=== PATIENT | male | born 1960 | race Caucasian/White ===

== ENCOUNTER → 2023-03-27 | Outpatient (CLI) | payer OTHER, SELFPAY ==
--- NOTE | 2023-03-27 13:19 | STRESSREP ---
Stress Test Report Pharmacologic myocardial perfusion stress test. 62-year-old man with a history of chest pain and atrial fibrillation Resting EKG demonstrates sinus rhythm with a rate of 65 bpm. Resting blood pressure is 128/84 mmHg. 0.4 mg of regadenoson was infused per usual protocol followed by rapid intravenous saline flush injection. Continuous EKG monitoring was performed. The maximum heart rate was 86 bpm which was 54% of max impacted heart rate the maximum workload was 1 metabolic equivalent. At rest there were no ST or T wave changes noted to suggest ischemia and at peak infusion nonspecific ST changes were noted which did not meet the criteria for ischemia. No clinical angina is noted. The final blood pressure was 124/74 mmHg. Myocardial perfusion protocol. 14.8 mCi of technetium 99m sestamibi was injected at rest. 0.4 mg of regadenoson was infused per usual protocol. At peak infusion 44.5 mCi of technetium 99m sestamibi was injected stress images were obtained stress and rest images were reconstructed and compared in the short axis vertical long and horizontal long axis. Gated images were also obtained. Perfusion SPECT analysis: Review of the stress images demonstrate normal uptake of tracer noted in all areas of the myocardium. The resting images similar demonstrated normal uptake of tracer noted in all areas of the myocardium. No areas of reversibility are noted to suggest ischemia and no previous infarct is noted. Gated SPECT analysis: The gated ejection fraction is 61%. Conclusion: Normal pharmacologic myocardial perfusion stress test. Preserved ejection fraction.
== END | disposition home or self-care (01) ==
PROVIDERS: PCP Family Medicine; Referring Provider Nurse Practitioner Family; Visit Provider Nurse Practitioner Family
DX: R07.9 Chest pain, unspecified (principal); R00.2 Palpitations
CPT/HCPCS: 78452; 93017; A9500; A4216; J2785

== ENCOUNTER 2023-04-10 11:10 | Observation (INO) | payer OTHER, SELFPAY ==
[2023-04-10] VITALS (24 sets, daily range): BP systolic 107–141; BP diastolic 72–105; PULSE 45–133; RESP 12–28; TEMP 36.2–36.9; O2SAT 95–100; BMI 31.5; BMI 31.2
--- NOTE | 2023-04-10 11:26 | RAD_ITS ---
STUDY: X-RAY CHEST REASON FOR EXAM: Male, 62 years old. Chest pain TECHNIQUE: 2 AP portable view of the chest. COMPARISON: None. FINDINGS: The lungs are clear and expanded. There is no demonstrated pleural abnormality. Normal size heart. Normal mediastinum and meron. Normal visualized pulmonary arteries. Normal visualized aortic arch and descending thoracic aorta. Normal visualized thoracic spine. Normal visualized ribs, clavicles, and shoulders. There is no demonstrated abnormality of the visualized soft tissue structures of the upper abdomen. RAD/Chest 1 View (Portable) IMPRESSION: Normal x-ray examination of the chest. Electronically Signed: Allan Carrasquillo MD at 13:25 EDT ,
--- NOTE | 2023-04-10 11:27 | EKG12_ITS ---
Test Reason : PALPITATIONS Blood Pressure : / mmHG Vent. Rate : 144 BPM Atrial Rate : 000 BPM P-R Int : 000 ms QRS Dur : 082 ms QT Int : 278 ms P-R-T Axes : 000 011 056 degrees QTc Int : 430 ms Atrial fibrillation with rapid ventricular response Abnormal ECG Confirmed by NIEVES BRITO, COLBY ([id number]), business editor BAMBI MESA ([id number]) on 04/12/2023 8:49:59 AM Referred By: [facility] Confirmed By:COLBY PICKETT MD
[2023-04-10 11:56] LABS: Absolute Lymphocyte Count 1.69 X10^3/uL (0.83-4.51); Absolute Neutrophil Count 6.3 X10^3/uL (2.0-7.7); Basophil# 0.05 X10^3/uL; Basophil% 0.6 % (0-1); Eosinophil# 0.11 X10^3/uL; Eosinophils% 1.3 % (0-5); Hematocrit 46.7 % (40-54); Lymphocyte # 1.69 X10^3/ul (0.83-4.51); Lymphocyte % 19.4 % (19-41); Mean Corp Hgb Conc 34.3 g/dL (32-36); Mean Corpuscular Hgb 30.2 pg (27.0-32.0); Mean Corpuscular Volume 88.1 fL (80-94); Mean Platelet Vol. 11.2 fl (6.2-12.0); Monocyte# 0.54 X10^3/uL; Monocyte% 6.2 % (0-10); NRBC Flagged by Analyzer 0 % (0-5); Neutrophil # 6.29 X10^3/uL (2.7-7.7); Neutrophil % 72.2 % (47-70); Platelet Count 245 K/mm3 (150-450); RBC Distribution Width CV 12.5 % (11.6-14.6); RBC Distribution Width SD 40.5 fl (35.1-43.9); White Blood Count 8.7 K/mm3 (4.4-11.0)
[2023-04-10] MEDS: dilTIAZem 25 MG/5 ML Vial IV BOLUS (12:02)
[2023-04-10] MEDS: 0.9% Normal Saline 1,000 ML 1000 ML IV (12:02)
[2023-04-10 12:07] LABS: Prothrombin Time (Protime)PT. 12.8 SECONDS (11.7-14.9)
[2023-04-10 12:08] LABS: Partial Thromboplast Time 30.2 Seconds (24.1-36.2)
--- NOTE | 2023-04-10 12:11 | EX.ED.DYSGE1 ---
HPI History of Present Illness Chief Complaint: Palpitations Informant: patient Onset/Context/Timing Onset: Yesterday Context: Sudden Onset Timing: Continuous Quality: Racing, tightness Location: Chest Worsened by: Exertion Relieved by: Nothing Associated Symptoms Associated Symptoms: Nausea, vomiting, fatigue Narrative Narrative: Patient presents with palpitations that began yesterday evening. Patient states it began rather suddenly. Patient states he felt his heart racing. Patient states he feels tightness in his chest. Patient states his symptoms are worse with any exertion. Patient does admit to some nausea and vomiting with this. Patient also states he has been feeling fatigued since this has started. Patient denies any diaphoresis. Patient denies any fevers or chills. Prior similar symptoms: Yes PFSH PFSH Medical History no medical history no medical history Allergy/AdvReac Type Severity Reaction Status Date / Time No Known Allergies Allergy Verified 04/10/23 11:13 Surgical History History of herniorrhaphy Social History Smoking Status: Current some day smoker tobacco type: cigars ROS ROS ED Constitutional Constitutional ED: Denies chills or fever(s) Eyes Eyes: Denies blurry vision or change in vision ENT ENT ED: Denies rhinorrhea or sore throat Cardiovascular Cardiovascular: Reports chest pain and palpitations Respiratory/Chest Respiratory/Chest: Denies cough or dyspnea Gastrointestinal Gastrointestinal: Reports nausea and vomiting Genitourinary Genitourinary ED: Denies dysuria or hematuria Musculoskeletal Musculoskeletal: Denies back pain or neck pain Integumentary Denies abscess or rash Neurologic Neurologic: Denies headache(s) or weakness Allergic/Immunologic Allergic/Immunologic ED: Denies mouth swelling or urticaria EXAM Physical Exam Const Vital Signs: 04/10/23 11:11 04/10/23 11:10 04/10/23 11:28 Temperature 98 F Temperature Source Temporal Pulse Rate 45 L 133 H Respiratory Rate 16 18 Respiratory Effort Short of Breath Labored Blood Pressure 121/95 H 141/104 H Blood Pressure Mean 103 116 Pulse Ox 97 98 Oxygen Delivery Method Room Air Room Air 04/10/23 12:10 04/10/23 13:10 04/10/23 14:00 Temperature Temperature Source Pulse Rate 77 96 110 H Respiratory Rate 16 24 H 22 H Respiratory Effort Blood Pressure 112/87 H 115/86 H 129/105 H Blood Pressure Mean 95 95 113 Pulse Ox 96 98 97 Oxygen Delivery Method Room Air Room Air Room Air Positive well nourished and well developed General Appearance ED: well developed HEENT Reports moist mucous membranes Neck supple and no JVD Resp normal respiratory effort and clear to auscultation bilaterally Cardio Rate: tachycardic Rhythm: abnormal rhythm irregularly irregular GI normal to inspection, nondistended, normoactive bowel sounds and non-tender Palpation: soft Extremity normal to inspection General Extremety ED: Negative for edema or tenderness General Extremity: Negative for edema Neuro oriented x3, CN's II-XII intact bilaterally and no sensory deficits noted Sensorium / Orientation: alert Motor Exam: strength 5/5 throughout Psych mental status grossly normal Skin no rashes or lesions noted MDM MDM MDM Narrative Medical decision making narrative: Differential diagnosis includes cardiac dysrhythmia, cardiac ischemia, anemia, electrolyte abnormality, and viral illness. Chest x-ray will be obtained to assess for cardiomegaly and pneumonia. EKG will be obtained to assess for cardiac dysrhythmia and cardiac ischemia. CBC will be obtained to assess for anemia and leukocytosis. Basic metabolic profile will be obtained to assess for electrolyte abnormality and renal function. PT with INR and PTT will be obtained to assess for coagulopathy. High-sensitivity troponin will be obtained to assess for cardiac ischemia. Lab Data Attestation: I reviewed the patient's lab results. Lab results narrative: CBC was reviewed and was within normal limits. PT with INR and PTT were reviewed and were within normal limits. Basic metabolic profile was reviewed. Glucose was slightly elevated at 126. The remainder was essentially within normal limits. High-sensitivity troponin was reviewed and was normal at 5. 2-hour repeat high-sensitivity troponin was reviewed and was normal at 6. Labs: Laboratory Results - last 24 hr 04/10/23 04/10/23 04/10/23 11:40 11:40 11:40 WBC 8.7 RBC 5.30 Hgb 16.0 Hct 46.7 MCV 88.1 MCH 30.2 MCHC 34.3 RDW Std Deviation 40.5 RDW Coeff of Andrei 12.5 Plt Count 245 MPV 11.2 Immature Gran % (Auto) 0.300 Neut % (Auto) 72.2 H Lymph % (Auto) 19.4 [place] % (Auto) 6.2 Eos % (Auto) 1.3 Baso % (Auto) 0.6 Absolute Neuts (auto) 6.3 Absolute Lymphs (auto) 1.69 Nucleated RBC % 0 PT 12.8 INR 1.0 APTT 30.2 Sodium 140 Potassium 4.3 Chloride 108 H Carbon Dioxide 24.0 Anion Gap 8 BUN 13 Creatinine 0.93 Estim Creat Clear Calc 97.17 Est GFR (MDRD) Af Amer 105 Est GFR (MDRD) Non-Af 87 BUN/Creatinine Ratio 14.0 Glucose 126 H Calcium 9.2 Troponin I High Sens 5 04/10/23 13:40 WBC RBC Hgb Hct MCV MCH MCHC RDW Std Deviation RDW Coeff of Andrei Plt Count MPV Immature Gran % (Auto) Neut % (Auto) Lymph % (Auto) [place] % (Auto) Eos % (Auto) Baso % (Auto) Absolute Neuts (auto) Absolute Lymphs (auto) Nucleated RBC % PT INR APTT Sodium Potassium Chloride Carbon Dioxide Anion Gap BUN Creatinine Estim Creat Clear Calc Est GFR (MDRD) Af Amer Est GFR (MDRD) Non-Af BUN/Creatinine Ratio Glucose Calcium Troponin I High Sens 6 Radiography Chest X-Ray - ED: 1 View, Read by ED Physician, Read by Radiologist and No Acute Disease Diagnostic Testing: Clinical Impression(s) from Imaging Studies Chest X-Ray 04/10/23 11:26 IMPRESSION: Normal x-ray examination of the chest. Electronically Signed: Allan Carrasquillo MD at 13:25 EDT Reading Location ID and State: [facility] / [place] , Service support , Portable 1 view chest x-ray was obtained. On my independent interpretation, lung childs are clear. There is normal cardiac silhouette. Bony thorax is normal. There is no acute process noted. Radiologist also interpreted the x-ray and agrees. EKG Initial EKG: Attestation: I personally reviewed and interpreted this EKG as follows: Interpretation: No Acute Injury Pattern and Atrial Fibrillation (144) Comments: EKG was obtained. On my independent interpretation, it shows atrial fibrillation with a rate of 144. QRS interval was normal at 82 ms. QTc interval was normal at 430 ms. [place] was normal. There are no acute ST or T wave changes noted. Prior EKG tracings: available for review Prior: Changed (Compared to EKG dated 03/27/2023, the atrial fibrillation is new. There are no new ST or T wave changes noted.) Treatment and Re-Evaluation :: Patient was given a dose of IV Cardizem here. Patient's heart rate improved after this. Patient's heart rate started to increase again. Patient was started on a Cardizem drip. Case was discussed with the hospitalist. He will admit the patient to PCU. Patient understands and is agreeable with the plan. All questions were answered. Discharge Plan Triage Chief Complaint: Palpitations ED Provider: Fernando Ramos Dx/Rx/DC Orders Clinical Impression: Atrial fibrillation, new onset, Heart palpitations Primary Care Provider: Ney Hightower Referrals: Ney Hightower MD [Primary Care Provider] - Disposition Disposition: Acute Care Hospital [facility]
[2023-04-10 12:30] LABS: Anion Gap 8 (5-15); BUN 13 mg/dL (7-18); Calcium,Total 9.2 mg/dL (8.5-10.1); Chloride 108 mmol/L (98-107); Creatinine, Serum 0.93 mg/dL (0.70-1.30); EST Glomerular Filtration Rate 87 mL/min (>60); Est Glom Filt Rate - Afr Amer 105 mL/min (>60); Estimated Creatinine Clearance 97.17 ml/min; Glucose 126 mg/dL (74-106); Potassium 4.3 mmol/L (3.5-5.1); Sodium Level 140 mmol/L (136-145); Troponin-I HS (w/2H Reflex) 5 pg/mL (3.0-78.0)
--- NOTE | 2023-04-10 12:57 | CM.ED ---
Social Work SW introduced self and role to patient and patient's . SW discussed HCPOA and Living Will documents. Patient reports he has old documents but has since gotten . Patient provided with Advanced Directives packet and information to schedule appointment. Pt and spouse to review. SW to follow up and assist with completion. Nan Navarrete AVIONIC TECHNICIAN, FACILITY SPECIALIST
[2023-04-10 13:47] LABS: Reflex Troponin-HS? (from REC) Y
[2023-04-10 14:12] LABS: Troponin-I HS 6 pg/mL (3.0-78.0)
--- NOTE | 2023-04-10 15:51 | PCM.HP.STD ---
[facility] - General General Date of Service: 04/10/23 Chief Complaint: Palpitation started about 6 PM last night. HPI Narrative CARRILLO FITZGERALD, is a 62 M who came to ER for palpitations that is started last night about 6 PM. Restated that about a month ago he had palpitations started while doing light work on weekend for about 2 to 3 days therefore he saw his PCP and referred for stress test. Patient had pharmacological perfusion stress test reported normal with EF 61%. Patient further said after episodes of palpitation he is scared of doing any exertional work like lawnmowing. He states he gets short of breath and gets palpitation on climbing stairs but no problems walking on level ground. Yesterday palpitation is started while he was at rest. He also complained of associated chest tightness and midsternal area related with palpitation. This is a localized feels like tightness/heaviness 3-4/10 intensity without related to activity or rest and brought by palpitation. I feel chest tightness is mainly feeling of palpitation. He denies any prior history of ID or cardiac disease. Denies history of hypertension, diabetes mellitus or dyslipidemia. Family history: His father had ID at age of 61 and he with ID. Mom because of lung cancer. Social history: He denies cigarette smoking but he smokes cigars sometimes. No heavy drinking alcohol or substance use [facility] Medical History no medical history Allergy/AdvReac Type Severity Reaction Status Date / Time No Known Allergies Allergy Verified 04/10/23 11:13 Surgical History History of herniorrhaphy Social History Smoking Status: Current some day smoker tobacco type: cigars ROS ROS Narrative Constitutional: No acute fatigue and weakness. No fever. HEENT: Reports systems reviewed and no addt'l complaints, except as documented Respiratory/Chest: Denies history of COPD or chronic lung disease. Rest as described in HPI CVS: As described in HPI Gastrointestinal: Denies coffee ground emesis, hematemesis or vomiting Genitourinary: Denies burning urination or new urinary tract symptoms Musculoskeletal: Denies acute joint pain or limited range of motion. No acute injury Neurologic: Denies seizure-like symptoms. No strokelike symptoms. skin: No ulcer. No rash Endocrinology: Reports systems reviewed and no addt'l complaints, except as documented Hematologic/Lymphatic: Reports systems reviewed and no addt'l complaints, except as documented Rest 14 ROS are negative except as mentioned in HPI Vital Signs Vital Signs Vital Signs: 04/10/23 11:11 04/10/23 11:10 04/10/23 11:28 Temperature 98 F Temperature Source Temporal Pulse Rate 45 L 133 H Respiratory Rate 16 18 Respiratory Effort Short of Breath Labored Blood Pressure 121/95 H 141/104 H Blood Pressure Mean 103 116 Pulse Ox 97 98 Oxygen Delivery Method Room Air Room Air 04/10/23 12:10 04/10/23 13:10 04/10/23 14:00 Temperature Temperature Source Pulse Rate 77 96 110 H Respiratory Rate 16 24 H 22 H Respiratory Effort Blood Pressure 112/87 H 115/86 H 129/105 H Blood Pressure Mean 95 95 113 Pulse Ox 96 98 97 Oxygen Delivery Method Room Air Room Air Room Air Weight Weight: 252 lb 8 oz Body Mass Index (BMI) 31.5 Physical Exam Narrative General: Alert, Oriented x3, Cooperative HEENT: Atraumatic, PERRLA, EOMI, Normocephalic Oral: Oral mucosa moist. No Gingival or Mucosal Lesions/ Ulcerations Neck: Supple, No JVD, Negative Carotid Bruits Lungs: Air entry diminished in bilateral lung bases. No crepitation/rhonchi Cardiovascular: Irregular heart rate and rhythm, A-fib with RVR. Normal S1, Normal S2, No murmurs Abdomen: Bowel Sounds Present, Soft, Non Tender, Non-Distended : No renal angle tenderness. No suprapubic tenderness. Extremities: No edema, Capillary Refill Less than 3 Seconds Skin: No rashes, No breakdown Musculoskeletal: No Tenderness to Palpation of Joints or Extremities Neurological: Cranial nerves II-XII grossly intact, DTR 2+/4 and Symmetrical, Neuro grossly intact Psych/Mental Status: Normal Affect, Appropriate. Results Lab / Micro Data Result Diagrams: 04/10/23 11:40 04/10/23 11:40 Labs: Laboratory Results - last 24 hr 04/10/23 11:40: WBC 8.7, RBC 5.30, Hgb 16.0, Hct 46.7, MCV 88.1, MCH 30.2, MCHC 34.3, RDW Std Deviation 40.5, RDW Coeff of Andrei 12.5, Plt Count 245, MPV 11.2, Immature Gran % (Auto) 0.300, Neut % (Auto) 72.2 H, Lymph % (Auto) 19.4, [place] % (Auto) 6.2, Eos % (Auto) 1.3, Baso % (Auto) 0.6, Absolute Neuts (auto) 6.3, Absolute Lymphs (auto) 1.69, Nucleated RBC % 0 04/10/23 11:40: PT 12.8, INR 1.0, APTT 30.2 04/10/23 11:40: Sodium 140, Potassium 4.3, Chloride 108 H, Carbon Dioxide 24.0, Anion Gap 8, BUN 13, Creatinine 0.93, Estim Creat Clear Calc 97.17, Est GFR (MDRD) Af Amer 105, Est GFR (MDRD) Non-Af 87, BUN/Creatinine Ratio 14.0, Glucose 126 H, Calcium 9.2, Troponin I High Sens 5 04/10/23 13:40: Troponin I High Sens 6 Radiology Impression Chest X-Ray 04/10/23 11:26 IMPRESSION: Normal x-ray examination of the chest. Electronically Signed: Allan Carrasquillo MD at 13:25 EDT Reading Location ID and State: [facility] / [place] , Service support , Assessment & Plan Assessment/Plan (1) Atrial fibrillation, new onset: PLAN: Plan This 62-year-old gentleman being admitted for A-fib with RVR with associated chest tightness and shortness of breath. Chest x-ray initially reviewed and is normal. 1. A-fib with RVR new onset: Patient is being admitted in PCU as a full admit. He said he was diagnosed A-fib about a month ago probably by PCP when he had a palpitation but is not on any home medication. Does not have any previous EKG in our system. Twelve-lead EKG initially reviewed shows A-fib with RVR 144 bpm, QTc 430 ms. Patient was given 25 mg IV Cardizem bolus but is still heart rate fluctuated between 90-120 and therefore started on Cardizem drip. Titrate up to keep heart rate in the 80s to 90s per minute. [id number] score is 0 but with A-fib history for 1 month and no high risk for bleeding and patient will also need 3 weeks of anticoagulation before attempting cardioversion therefore started on Eliquis 5 mg twice daily. Fasting lipid profile and TSH tomorrow AM. 2. Atypical chest tightness probably related with palpitations/A-fib with RVR: Patient had 2 serial troponins in 2 hours and are negative therefore ACS ruled out. Pharmacological nuclear stress test on 03/27/2023 reported normal. Repeat EKG on admission on floor. 2D echo is ordered for tomorrow AM. 3. Hyperglycemia: Glucose is 126 in BMP. A1c tomorrow AM. VT prophylaxis Eliquis 5 mg twice daily Living will/advanced directive/end of life care: Patient does have living will or advanced directive. His power of insurance attorney for health his Mrs. Ellyn Fitzgerald. After discussion of benefits/risks procedures involved with full code, DNR CC arrest and DNR CC, the patient opted for full code. Patient does want artificial life support including intubation, tube feed, ventilator and/chest compression, central venous catheter, vasopressor and DC shock if needed Total time spent in [id number] encounter in discussion of advanced directive 17 minutes. Laboratory Results 04/10/23 11:40: WBC 8.7, RBC 5.30, Hgb 16.0, Hct 46.7, MCV 88.1, MCH 30.2, MCHC 34.3, RDW Std Deviation 40.5, RDW Coeff of Andrei 12.5, Plt Count 245, MPV 11.2, Immature Gran % (Auto) 0.300, Neut % (Auto) 72.2 H, Lymph % (Auto) 19.4, [place] % (Auto) 6.2, Eos % (Auto) 1.3, Baso % (Auto) 0.6, Absolute Neuts (auto) 6.3, Absolute Lymphs (auto) 1.69, Nucleated RBC % 0 04/10/23 11:40: PT 12.8, INR 1.0, APTT 30.2 04/10/23 11:40: Sodium 140, Potassium 4.3, Chloride 108 H, Carbon Dioxide 24.0, Anion Gap 8, BUN 13, Creatinine 0.93, Estim Creat Clear Calc 97.17, Est GFR (MDRD) Af Amer 105, Est GFR (MDRD) Non-Af 87, BUN/Creatinine Ratio 14.0, Glucose 126 H, Calcium 9.2, Troponin I High Sens 5 04/10/23 13:40: Troponin I High Sens 6 Clinical Impression(s) from Imaging Studies Chest X-Ray 04/10/23 11:26 IMPRESSION: Normal x-ray examination of the chest. Charges/Coding Visit Charges Inpatient E&M: 17131 Init Hosp L3 Procedures Hospitalists Procedures: 51973 Advncd Care Plan 30 Min
[2023-04-10 17:35] LABS: Magnesium 2.2 mg/dL (1.6-2.6)
[2023-04-10] MEDS: Metoprolol Tartrate 25 MG Tablet PO (18:15)
[2023-04-10] MEDS: APIXABAN 5 MG TABLET PO (21:10)
[2023-04-11] VITALS (16 sets, daily range): BP systolic 121–138; BP diastolic 79–95; PULSE 58–70; RESP 11–20; TEMP 36.6–37.1; O2SAT 94–99
[2023-04-11 07:14] LABS: Basophil# 0.04 X10^3/uL; Basophil% 0.5 % (0-1); Eosinophil# 0.31 X10^3/uL; Hematocrit 45.7 % (40-54); Hemoglobin 15.8 g/dL (13.0-16.5); Lymphocyte % 24.2 % (19-41); Mean Corp Hgb Conc 34.6 g/dL (32-36); Mean Corpuscular Hgb 30.6 pg (27.0-32.0); Mean Corpuscular Volume 88.6 fL (80-94); Mean Platelet Vol. 10.8 fl (6.2-12.0); Monocyte# 0.59 X10^3/uL; Monocyte% 7.5 % (0-10); NRBC Flagged by Analyzer 0 % (0-5); Neutrophil # 4.98 X10^3/uL (2.7-7.7); Neutrophil % 63.5 % (47-70); Platelet Count 239 K/mm3 (150-450); RBC Distribution Width CV 12.6 % (11.6-14.6); RBC Distribution Width SD 41.5 fl (35.1-43.9); Red Blood Count 5.16 M/mm3 (4.6-6.2); White Blood Count 7.8 K/mm3 (4.4-11.0)
[2023-04-11 08:14] LABS: Anion Gap 5 (5-15); BUN 13 mg/dL (7-18); BUN/Creat Ratio 15.2 RATIO (10-20); Calcium,Total 8.5 mg/dL (8.5-10.1); Chloride 107 mmol/L (98-107); Cholesterol 211 mg/dL (200); Creatinine, Serum 0.85 mg/dL (0.70-1.30); EST Glomerular Filtration Rate 96 mL/min (>60); Est Glom Filt Rate - Afr Amer 116 mL/min (>60); Estimated Creatinine Clearance 106.32 ml/min; Glucose 122 mg/dL (74-106); High Density Lipoprotein 57 mg/dL; Potassium 4.1 mmol/L (3.5-5.1); Sodium Level 137 mmol/L (136-145); Thyroid Stim Hormone (TSH) 1.71 uIU/mL (0.358-3.74); Triglycerides 117 mg/dL; Very Low Density Lipoprotein 23 mg/dL (5-40)
[2023-04-11] MEDS: Metoprolol Tartrate 25 MG Tablet PO (08:22)
[2023-04-11] MEDS: Acetaminophen 325 MG Tablet 650 MG PO (08:22)
[2023-04-11] MEDS: APIXABAN 5 MG TABLET PO (08:23)
[2023-04-11 08:53] LABS: Hemoglobin A1c 5.6 % (3.8-5.6)
--- NOTE | 2023-04-11 11:40 | CASEMGMT ---
RN MACEY Face to Face with patient for initial transition planning/care coordination assessment. RN CM introduced self and role at [facility]. Patient lying in bed, alert and oriented, at bedside. Patient willing to participate in assessment and is able to answer all questions appropriately. Care providers, pharmacy, and demographics verified. Patient wishes to discharge home, denies need for home health at this time. Patient states he has no further needs or concerns at this time. CM to follow for discharge planning needs that may arise. PCP: [facility] Specialists: none Preferred Pharmacy: [facility] Insurance: [employer] Prescription Benefit: yes Living Will/HPOA: yes, but he will be changing them, declined assistance from [employer] [facility]: Living Arrangements: Patient lives with in a split level home. Patient is independent and able to ambulate stairs. Transportation: self, DME/HHC: Patient denies DME in the home. No previous HHC or SNF. Disposition Plan: Patient to discharge home with family support and follow-up plans in place. Kenyetta SANTIAGO, RN, CM
--- NOTE | 2023-04-11 11:47 | DCINST_ITS ---
Discharge Instructions Diet Discharge Diet: No restrictions Activity Discharge Activity: Return to Normal Activity Weight Bearing Status: Full weight bearing Follow Up Care Test Results: Test results from this visit will be discussed in further detail at your follow- up appointment, if applicable. Discharge Plan Admission Admit Date/Time: 04/10/23 15:45 Primary Reason for Your Visit: a-fib Attending Provider: Ney Bansal Primary Care Provider: Ney Hightower Consulting Providers: Clemente Sorensen Discharge Orders/Prescriptions Prescriptions: New metoprolol tartrate 25 mg Tablet 25 mg PO BID Qty: 60 0RF Referrals / Follow Up: Ney Hightower MD [Primary Care Provider] - Within 1 Week Disposition Disposition (needs filled in before D/C Order can be placed): Home, Self Care
--- NOTE | 2023-04-11 11:56 | PCM.DC.SUM ---
Providers Date of Admission: 04/10/23 Date of Discharge: 04/11/23 Primary Care Physician: Dr. Ney Hightower MD Reason For Visit: AFIB WITH RVR Diagnosis Discharge Diagnosis (1) Atrial fibrillation, new onset: Status: Acute Code(s): I48.91 - Unspecified atrial fibrillation Plan 1. New onset atrial fibrillation with RVR-converted to sinus rhythm Medications at Discharge Home Medications metoprolol tartrate 25 mg tablet 25 mg PO BID #60 tabs 04/11/23 Hospital Course Operations None Procedures None Summary of Care Provided Minutes Spent on Discharge: 31 Hospital Course: This 62-year-old white male was seen in the emergency room at [facility] with a chief complaint of palpitations, work-up in the emergency room included an EKG which showed him to be in atrial fibrillation with a rapid ventricular response. Labs obtained in the emergency room were normal including a high-sensitivity troponin. Patient also had a 2-hour repeat high-sensitivity troponin which was also unremarkable. Chest x-ray appeared normal. Patient was given a dose of IV Cardizem in the ER, his heart rate improved and then it started to increase again and he was placed on a Cardizem drip. Patient was admitted to PCU on a Cardizem drip, he converted to sinus rhythm, he was also placed on a beta-pilo. Patient declined an echocardiogram as he had had one done recently as an outpatient due to complaints of palpitations. Patient had also had a recent stress test which was negative for reversible ischemia as an outpatient. On 04/11/2023, patient was seen and examined: On examination he appeared in good health and spirits. Vital signs as documented. Skin warm and dry and without overt rashes. Neck without JVD, neck was supple, trachea midline, thyroid was normal. Lungs clear bilaterally, normal air movement was noted. Heart exam notable for regular rhythm, normal sounds and absence of murmurs, rubs or gallops. Abdomen unremarkable and without evidence of organomegaly, masses, or abdominal aortic enlargement. Bowel sounds are present, abdomen is not distended. Extremities nonedematous, no cyanosis was noted, no clubbing was noted. Neuro: Cranial nerves II through XII are grossly intact, no focal motor deficits were noted, sensation to light touch and pinprick intact, motor exam 5/5 throughout. Psych: Patient is alert and oriented x3, he does not appear anxious or depressed, he does not appear agitated. Patient appears stable for discharge home on 04/11/2023, I did not feel it was necessary to place the patient on anticoagulants as his Endy vas 2 score was low, I recommend that he follow-up with his PCP regarding having a 30-day Holter monitor ordered. I also instructed the patient that if he felt that his heart rate was increasing as an outpatient that he double his discharge dose of metoprolol and call his PCP immediately about it. Weight / BMI Weight Weight: 113.483 kg Body Mass Index (BMI) 31.2 ABG / Lab / Microbiology Data Result Diagrams: 04/11/23 06:45 04/11/23 06:45 Laboratory: Laboratory Results - last 24 hr 04/10/23 11:40: WBC 8.7, RBC 5.30, Hgb 16.0, Hct 46.7, MCV 88.1, MCH 30.2, MCHC 34.3, RDW Std Deviation 40.5, RDW Coeff of Andrei 12.5, Plt Count 245, MPV 11.2, Immature Gran % (Auto) 0.300, Neut % (Auto) 72.2 H, Lymph % (Auto) 19.4, [place] % (Auto) 6.2, Eos % (Auto) 1.3, Baso % (Auto) 0.6, Absolute Neuts (auto) 6.3, Absolute Lymphs (auto) 1.69, Nucleated RBC % 0 04/10/23 11:40: PT 12.8, INR 1.0, APTT 30.2 04/10/23 11:40: Sodium 140, Potassium 4.3, Chloride 108 H, Carbon Dioxide 24.0, Anion Gap 8, BUN 13, Creatinine 0.93, Estim Creat Clear Calc 97.17, Est GFR (MDRD) Af Amer 105, Est GFR (MDRD) Non-Af 87, BUN/Creatinine Ratio 14.0, Glucose 126 H, Calcium 9.2, Troponin I High Sens 5 04/10/23 13:40: Troponin I High Sens 6 04/10/23 13:40: Magnesium 2.2 04/11/23 06:45: WBC 7.8, RBC 5.16, Hgb 15.8, Hct 45.7, MCV 88.6, MCH 30.6, MCHC 34.6, RDW Std Deviation 41.5, RDW Coeff of Andrei 12.6, Plt Count 239, MPV 10.8, Immature Gran % (Auto) 0.300, Neut % (Auto) 63.5, Lymph % (Auto) 24.2, [place] % (Auto) 7.5, Eos % (Auto) 4.0, Baso % (Auto) 0.5, Absolute Neuts (auto) 5.0, Absolute Lymphs (auto) 1.90, Nucleated RBC % 0 04/11/23 06:45: Sodium 137, Potassium 4.1, Chloride 107, Carbon Dioxide 25.0, Anion Gap 5, BUN 13, Creatinine 0.85, Estim Creat Clear Calc 106.32, Est GFR (MDRD) Af Amer 116, Est GFR (MDRD) Non-Af 96, BUN/Creatinine Ratio 15.2, Glucose 122 H, Calcium 8.5, Triglycerides 117, Cholesterol 211 H, LDL Cholesterol 131 H, VLDL Cholesterol 23, HDL Cholesterol 57, TSH 1.71 04/11/23 06:45: Hemoglobin A1c 5.6 Radiography Diagnostic Testing: Radiology Impression Chest X-Ray 04/10/23 11:26 IMPRESSION: Normal x-ray examination of the chest. Electronically Signed: Allan Carrasquillo MD at 13:25 EDT , D/C Instructions Discharge Diet: No restrictions Weight Bearing Status: Full weight bearing Meaningful Use Info Meaningful Use Diagnoses (Choose all that apply): None applicable Discharge Plan Admission Admit Date/Time: 04/10/23 15:45 Primary Reason for Your Visit: a-fib Attending Provider: Ney Bansal Primary Care Provider: Ney Hightower Consulting Providers: Clemente Sorensen Discharge Orders/Prescriptions Prescriptions: New metoprolol tartrate 25 mg Tablet 25 mg PO BID Qty: 60 0RF Referrals / Follow Up: Ney Hightower MD [Primary Care Provider] - Within 1 Week Disposition Disposition (needs filled in before D/C Order can be placed): Home, Self Care Charges/Coding Visit Charges Inpatient E&M: 76132 Disch Hosp >30min
--- NOTE | 2023-04-11 14:56 | PHA.DC.MR ---
Pharmacy Service has performed discharge medication reconciliation for this patient. The patient's discharge medication list was reviewed for discrepancies and discrepancies were resolved. Medication education papers prepared, patient discharged before I was able to youth counselor. Per Dr. Bansal, patient not to go home with anticoagulation. Home Medications metoprolol tartrate 25 mg tablet 25 mg PO BID #60 tabs 04/11/23
== END 2023-04-11 14:11 | disposition home or self-care (01) | DRG 310 ==
LOC: ED 15:56 → PCU 04-11 07:41
PROVIDERS: Admitting Provider Internal Medicine; Emergency Provider Emergency Medicine; PCP Family Medicine; Visit Provider Internal Medicine
DX: I48.91 Unspecified atrial fibrillation (principal); F17.290 Nicotine dependence, other tobacco product, uncomplicated; R73.9 Hyperglycemia, unspecified; R94.31 Abnormal electrocardiogram [ECG] [EKG]; Z82.49 Family history of ischemic heart disease and other diseases of the circulatory system
CPT/HCPCS: 36415; 71045; 80048; 80061; 83036; 83735; 84443; 84484; 85025; 85610; 85730; 93005; 96365; 96366; 96375; 99221; 99285; J7030; A4216; G0378